=== PATIENT | male | born 2000 | race Caucasian/White ===

== ENCOUNTER 2021-10-18 15:30 | Emergency (ER) | payer OTHER ==
[~2021-10-18] VITALS: Ht 175.3 cm; Wt 75.0 kg
[2021-10-18] MEDS ORDERED: ACETAMINOPHEN *IV* 1,000 MG in IV 1 EA IV ONE (20:25)
[2021-10-18] MEDS ORDERED: NS 1,000 ML IV ONE (20:25)
[2021-10-18 20:57] LABS: BASO % 0.6 % (0.0-1.0); EOS # 0.3 10^3/uL (0.0-0.5); EOS % 3.9 % (0.0-3.0); HEMATOCRIT 44.6 % (42.0-52.0); HEMOGLOBIN 15.1 g/dl (13.5-17.5); LYMPH # 1.9 10^3/uL (1.5-5.0); LYMPH % 29.5 % (24.0-44.0); MEAN CORPUSCULAR HEMOGLOBIN 29.9 pg (27.0-33.0); MEAN CORPUSCULAR HGB CONC 33.9 g/dl (32.0-36.5); MEAN CORPUSCULAR VOLUME 88.3 fl (80.0-96.0); MONO # 0.6 10^3/uL (0.0-0.8); MONO % 9.6 % (2.0-8.0); NEUTROPHILS # 3.6 10^3/uL (1.5-8.5); NEUTROPHILS % 56.2 % (36.0-66.0); PLATELET COUNT, AUTOMATED 321 10^3/uL (150-450); RED BLOOD COUNT 5.05 10^6/uL (4.30-6.10); WHITE BLOOD COUNT 6.4 10^3/uL (4.0-10.0)
[2021-10-18] MEDS ORDERED: KETOROLAC 30 MG/ML 1ML VIAL IV ONE (21:45)
[2021-10-18 22:28] VITALS: BP 111/52
== END 2021-10-18 22:39 | disposition home or self-care (01) ==
LOC: M ED 15:30 → EDSEX 15:30 → M ED 22:39
DX: G44.219 Episodic tension-type headache, not intractable (principal)
CPT/HCPCS: 70450; 85025; 96365; 96375; 99283; J0131; J1885

== ENCOUNTER → 2022-04-20 | Outpatient (REF) | payer OTHER ==
[2022-04-20 15:21] LABS: APPEARANCE, URINE MANUAL CLEAR (CLEAR); COLOR, URINE MANUAL LT YELLOW (YELLOW)
[2022-04-20 15:23] LABS: BILIRUBIN, URINE MANUAL NEGATIVE (NEGATIVE); BLOOD URINE MANUAL NEGATIVE (NEGATIVE); GLUCOSE, URINE (UA) MANUAL NEGATIVE (NEGATIVE); KETONE, URINE MANUAL NEGATIVE (NEGATIVE); LEUKOCYTE ESTERASE, URINE MAN NEGATIVE (NEGATIVE); NITRITE, URINE MANUAL NEGATIVE (NEGATIVE); PROTEIN, URINE MANUAL NEGATIVE (NEGATIVE); UROBILINOGEN, URINE MANUAL NORMAL (NORMAL)
[2022-04-20 18:46] LABS: C REACTIVE PROTEIN QUANTITATIV < 0.30 MG/DL (0.00-0.30); COMPLEMENT C3 98 MG/DL (90-180); COMPLEMENT C4 18 MG/DL (10-40); IRON (FE) 134 UG/DL (65-175); MAGNESIUM LEVEL 2.3 MG/DL (1.8-2.4); PHOSPHORUS LEVEL 3.8 MG/DL (2.5-4.9)
[2022-04-20 19:06] LABS: TOTAL PROTEIN,RANDOM URINE 7.2 MG/DL (0.0-12.0)
[2022-04-20 19:46] LABS: VITAMIN B12 LEVEL 367 PG/ML (247-911)
[2022-04-21 10:28] LABS: DRVV SCREEN 36.9 SEC
== END ==
LOC: M SFHCRHEU 10:54
PROVIDERS: ATTEND Internal Medicine
DX: R76.8 Other specified abnormal immunological findings in serum (principal); R53.82 Chronic fatigue, unspecified
CPT/HCPCS: 81002; 82306; 82570; 82607; 83540; 83735; 84100; 84156; 84443; 85652; 85730; 86140; 86160; 86162; G0463